=== PATIENT | female | born 1955 | race Caucasian/White ===

== ENCOUNTER 2023-09-07 15:18 | Emergency (ER) | payer MEDICARE ==
[2023-09-07 16:01] VITALS: TEMP 98.4
[2023-09-07] MEDS ORDERED: LIDOCAINE 1% INJ 10MG/ML (20 ML MDV) SQ ONE (16:40)
--- NOTE | 2023-09-07 17:35 | ED ---
Upper Extremity HPI - General Chief Complaint: Wound/Laceration Stated Complaint: knife cut to palm Time Seen by Provider: 09/07/23 16:23 Source: patient, RN notes reviewed Mode of arrival: ambulatory Limitations: no limitations - History of Present Illness Initial Comments: This is a 68-year-old female who presents to the emergency department for an inj ury to the left hand. States that she was cutting meat, when the knife slipped and she cut herself in the left palm. Tetanus vaccine is up-to-date. She initially called EMS who bandaged the patient, however she refused transport by them and opted to have a friend bring her to the emergency department instead. MD Complaint: Injury to:: left, hand - Related Data Allergies Allergy/AdvReac Type Severity Reaction Status Date / Time oxytetracycline Allergy Unknown Verified 09/07/23 15:59 [From Terramycin] Review of Systems ROS Statement: Those systems with pertinent positive or pertinent negative responses have been documented in the HPI. ROS Other: All systems not noted in ROS Statement are negative. Past Medical History Past Medical History: Asthma, Diabetes Mellitus, Hyperlipidemia, Hypertension, Thyroid Disorder History of Any Multi-Drug Resistant Organisms: None Reported Past Surgical History: Appendectomy, Hysterectomy, Orthopedic Surgery Additional Past Surgical History / Comment(s): arm surgery Past Psychological History: No Psychological Hx Reported Smoking Status: Former smoker Past Alcohol Use History: None Reported Past Drug Use History: None Reported General Exam Limitations: no limitations General appearance: alert, in no apparent distress Head exam: Present: atraumatic, normocephalic, normal inspection Respiratory exam: Present: normal lung sounds bilaterally. Absent: respiratory distress, wheezes, rales, rhonchi, stridor Cardiovascular Exam: Present: regular rate, normal rhythm, normal heart sounds. Absent: systolic murmur, diastolic murmur, rubs, gallop, clicks Neurological exam: Present: alert, oriented X3, CN II-XII intact Psychiatric exam: Present: normal affect, normal mood Skin exam: Present: other (3cm laceration to the left palm with visible subcutaneous tissue and active bleeding) Course Vital Signs 09/07/23 09/07/23 15:54 17:42 Temperature 98.4 F Pulse Rate 69 Pulse Rate [ 65 Right Pulse Oximetery] Respiratory 16 18 Rate Blood Pressure 151/83 Blood Pressure 121/71 [Right Arm] O2 Sat by Pulse 98 98 Oximetry Procedures - Laceration Laceration #1 Consent Obtained: verbal consent Indication: laceration Site: hand Size (cm): 3 Description: linear Depth: simple, single layer Anesthetic Used: lidocaine 1% Anesthesia Technique: local infiltration Amount (mls): 4 Pre-repair: wound explored, irrigated extensively Type of Sutures: nylon Size of Sutures: 5-0 Number of Sutures: 4 Technique: simple, interrupted Medical Decision Making - Medical Decision Making This is a 68-year-old female who presents to the emergency department for a laceration to the left hand. Was pt. sent in by a medical professional or institution? @ -No Did you speak to anyone other than the patient for history? @ -No Did you review nursing and triage notes? @ -Yes, and I agree, it is accurate with regards to the patient's symptoms. Were old charts reviewed? @ -No Differential Diagnosis? @ -Not applicable EKG interpreted by me (3pts min.)? @ -Not obtained X-rays interpreted by me (1pt min.)? @ -Not obtained CT interpreted by me (1pt min.)? @ -Not obtained U/S interpreted by me (1pt. min.)? @ -Not obtained What testing was considered but not performed? (CT, X-rays, U/S, labs)? Why? @ -None What meds were considered but not given? Why? @ -None Did you discuss the management of the patient with other professionals? @ -No Did you reconcile home meds? @ -No Was smoking cessation discussed for >3mins.? @ -No Was critical care preformed (if so, how long)? @ -No Were there social determinants of health that impacted care today? How? (Homelessness, low income, unemployed, alcoholism, drug addiction, transportation, low edu. Level, literacy, decrease access to med. care, halfway, rehab)? @ -No Was there de-escalation of care discussed even if they declined? (Discuss DNR or withdrawal of care, Hospice)? @ -No What co-morbidities impacted this encounter? (DM, HTN, Smoking, COPD, CAD, Cancer, CVA, Hep., AIDS, mental health diagnosis, sleep apnea, morbid obesity)? @ -None Was patient admitted / discharged? @ -Discharged. Her hand was soaked in sterile water and thoroughly cleansed. Laceration was repaired with sutures. Tetanus vaccine is already up to date. Advised Ibuprofen and Tylenol as needed for pain relief and she is instructed to return in 7-10 days for suture removal. Undiagnosed new problem with uncertain prognosis? @ -None Drug Therapy requiring intensive monitoring for toxicity (Heparin, Nitro, Insulin, Cardizem)? @ -None Were any procedures done? @ -Laceration repair with sutures Diagnosis/symptom? @ -Laceration Acute, or Chronic, or Acute on Chronic? @ -Acute Uncomplicated (without systemic symptoms) or Complicated (systemic symptoms)? @ -Uncomplicated Side effects of treatment? @ -None Exacerbation, Progression, or Severe Exacerbation] @ -Not applicable Poses a threat to life or bodily function? @ -No Return precautions reviewed in depth, the patient is instructed to return to the emergency department with any new, worsening, or concerning symptoms. Patient verbalized understanding. This case was discussed in detail with the attending ED physician, Dr. Trujillo. Presentation, findings, and treatment plan discussed in detail as well. Disposition Clinical Impression: Laceration Disposition: HOME SELF-CARE Instructions (If sedation given, give patient instructions): Care For Your Stitches (ED) Additional Instructions: Return to the emergency department with any new, worsening, or concerning symptoms and in 7-10 days for removal of the stitches. Alternate with Ibuprofen and Tylenol as needed for pain relief. Follow up with your primary care provider in 1-2 days. Is patient prescribed a controlled substance at d/c from ED?: No Referrals: Tray Whitaker MD [Primary Care Provider] - 1-2 days
[2023-09-07 17:55] VITALS: BP 121/71; PULSE 65; RESP 18
== END 2023-09-07 17:52 | disposition home or self-care (01) ==
LOC: EC 15:18
DX: S61.412A Laceration without foreign body of left hand, initial encounter (principal); E11.9 Type 2 diabetes mellitus without complications; J45.909 Unspecified asthma, uncomplicated; I10 Essential (primary) hypertension; Z87.891 Personal history of nicotine dependence; Z88.8 Allergy status to other drugs, medicaments and biological substances; W26.0XXA Contact with knife, initial encounter
CPT/HCPCS: 99282; 12002; J2001

== ENCOUNTER → 2023-10-02 | Outpatient (CLI) | payer MEDICARE ==
--- NOTE | 2023-10-02 09:40 | US ---
EXAMINATION TYPE: US kidneys/renal and bladder DATE OF EXAM: 10/02/2023 COMPARISON: NONE CLINICAL INDICATION: Female, 68 years old with history of N18.32 CHRONIC KIDNEY DISEASE, STAGE 3B; CK D 3B EXAM MEASUREMENTS: Right Kidney: 12.0x4.3x4.2 cm Left Kidney: 10.2x5.4x4.0 cm Right Kidney: mid/lateral cyst: 1.4x1.3x1.3cm Left Kidney: No hydronephrosis or masses seen Bladder: obscured by overlying bowel and body habitus There is no evidence for hydronephrosis at this point in time. No nephrolithiasis is seen. No sharon s are identified exam limited by overlying bowel and body habitus IMPRESSION: Simple cyst right kidney. Otherwise unremarkable study.
== END | disposition home or self-care (01) ==
LOC: RADUSWWP 08:09
PROVIDERS: ATTEND Family Medicine
DX: N18.32 Chronic kidney disease, stage 3b (principal)
CPT/HCPCS: 76770

== ENCOUNTER → 2023-10-20 | Outpatient (CLI) | payer MEDICARE | LOC: CPPFTMAIN 09:43 | PROVIDERS: ATTEND Family Medicine | DX: J44.9 Chronic obstructive pulmonary disease, unspecified (principal); Z88.1 Allergy status to other antibiotic agents | CPT/HCPCS: 94060; 94726; 94729 ==

== ENCOUNTER → 2024-04-04 | Outpatient (CLI) | payer MEDICARE ==
[2024-04-04 17:47] LABS: Creatinine,Urine Random 27.6 mg/dL; Protein/Creatinine Ratio,Urine 0.29
== END | disposition home or self-care (01) ==
LOC: LABWHC1 07:06
PROVIDERS: ATTEND Internal Medicine
DX: N18.30 Chronic kidney disease, stage 3 unspecified (principal); N39.0 Urinary tract infection, site not specified; N25.81 Secondary hyperparathyroidism of renal origin; R80.9 Proteinuria, unspecified
CPT/HCPCS: 36415; 80069; 82043; 82570; 83970; 84156

== ENCOUNTER → 2024-08-08 | Outpatient (CLI) | payer MEDICARE ==
[2024-08-08 15:03] LABS: Albumin 4.4 g/dL (3.8-4.9); BUN/Creat Ratio 21.05 Ratio (12.00-20.00); Calcium 10.2 mg/dL (8.7-10.3); Carbon Dioxide 21.8 mmol/L (21.6-31.8); Chloride 104 mmol/L (96-109); Glucose 132 mg/dL (70-110); Phosphorus 3.6 mg/dL (2.4-5.1); Potassium 4.5 mmol/L (3.5-5.5); Sodium 139 mmol/L (135-145)
[2024-08-08 15:16] LABS: Appearance,Urine Cloudy (Clear); Bilirubin,Urine Negative (Negative); Blood,Urine Negative (Negative); Color,Urine Yellow (Yellow); Ketones,Urine Negative (Negative); Nitrite,Urine Negative (Negative); Specific Gravity,Urine 1.015 (1.001-1.030)
[2024-08-08 15:51] LABS: Bacteria,Urine 3+ (None Seen)
== END | disposition home or self-care (01) ==
LOC: LABWHC1 09:13
PROVIDERS: ATTEND Internal Medicine
DX: N18.30 Chronic kidney disease, stage 3 unspecified (principal); N39.0 Urinary tract infection, site not specified; R80.9 Proteinuria, unspecified
CPT/HCPCS: 36415; 80069; 81001; 82043; 82570

== ENCOUNTER 2024-09-24 10:34 | Emergency (ER) | payer MEDICARE ==
[2024-09-24 10:41] VITALS: PULSE 78; RESP 20
--- NOTE | 2024-09-24 11:31 | XR ---
Left ankle HISTORY: Pain. COMPARISON: None. TECHNIQUE: 3 views of the left ankle were obtained. FINDINGS: There is moderate soft tissue swelling. Ankle mortise is intact. There is a ossicle adjacent to the distal medial malleolus which likely represents a remote evulsion injury as the margins are corticated. There is a small plantar calcaneal spur. There are no acute fractures or dislocations. IMPRESSION: 1. Moderate soft tissue swelling. 2.No acute fracture or dislocation. 3. remote avulsion injury of the medial malleolus. [facility], Workstation: [facility], 09/24/2024 11:29 AM
--- NOTE | 2024-09-24 11:33 | XR ---
Left foot. HISTORY: Pain following trauma. COMPARISON: None TECHNIQUE: 3 views of the left foot were obtained. FINDINGS: There is no fracture, dislocation, intraosseous or intra-articular abnormality. IMPRESSION: No evidence of acute trauma. [facility], Workstation: [facility], 09/24/2024 11:31 AM
--- NOTE | 2024-09-24 11:47 | ED ---
Lower Extremity Injury HPI - General Chief Complaint: Extremity Injury, Lower Stated Complaint: ankle pain Time Seen by Provider: 09/24/24 11:46 Source: patient, RN notes reviewed Mode of arrival: wheelchair Limitations: no limitations - History of Present Illness Initial Comments: 69-year-old female presented to the ER for evaluation of left foot pain. P atient states on Thursday she was attempting to put on a shoe. She states she was rotating her ankle [id number] to get her shoe on since then she has noticed pain and swelling to her left foot and ankle. She states her shoes have been compressing the swelling. She reports she has been favoring her left foot due to this discomfort. She was reporting most of her discomfort along the left second and third MTP joint. She has tried conservative measures without relief. She denies any calf tenderness/swelling. Patient has not tried anything for discomfort at this time. - Related Data Allergies Allergy/AdvReac Type Severity Reaction Status Date / Time oxytetracycline Allergy Unknown Verified 09/24/24 10:37 [From Terramycin] Review of Systems ROS Statement: Those systems with pertinent positive or pertinent negative responses have been documented in the HPI. ROS Other: All systems not noted in ROS Statement are negative. Past Medical History Past Medical History: Asthma, Diabetes Mellitus, Hyperlipidemia, Hypertension, Thyroid Disorder History of Any Multi-Drug Resistant Organisms: None Reported Past Surgical History: Appendectomy, Hysterectomy, Orthopedic Surgery Additional Past Surgical History / Comment(s): arm surgery Past Psychological History: No Psychological Hx Reported Smoking Status: Former smoker Past Alcohol Use History: None Reported Past Drug Use History: None Reported General Exam Limitations: no limitations General appearance: alert, in no apparent distress Respiratory exam: Present: normal lung sounds bilaterally. Absent: respiratory distress, wheezes, rales, rhonchi, stridor Cardiovascular Exam: Present: regular rate, normal rhythm, normal heart sounds. Absent: systolic murmur, diastolic murmur, rubs, gallop, clicks Extremities exam: Present: full ROM, tenderness (Left second and third MTP joint and forefoot. There is minimal redness overlying second and third MTP joint.), normal capillary refill (2+ left DP and PT pulse) Neurological exam: Present: alert, oriented X3, CN II-XII intact Skin exam: Present: warm, dry, intact, normal color. Absent: rash Course Vital Signs 09/24/24 09/24/24 10:38 11:58 Temperature 98.3 F 98.1 F Pulse Rate 78 78 Respiratory 20 20 Rate Blood Pressure 143/76 137/79 O2 Sat by Pulse 97 98 Oximetry Medical Decision Making - Medical Decision Making Was pt. sent in by a medical professional or institution ([facility] De [facility]zman, [employer] REFINISHER, urgent care, hospital, or jail...) When possible be specific @ -No Did you speak to anyone other than the patient for history (EMS, parent, family, police, friend...)? What history was obtained from this source @ -No Did you review nursing and triage notes (agree or disagree)? Why? @ -I reviewed and agree with nursing and triage notes Were old charts reviewed (outside hosp., previous admission, EMS record, old EKG, old radiological studies, urgent care reports/EKG's, jail records)? Report findings @ -No old charts were reviewed Differential Diagnosis (chest pain, altered mental status, abdominal pain women, abdominal pain men, vaginal bleeding, weakness, fever, dyspnea, syncope, headache, dizziness, GI bleed, back pain, seizure, CVA, palpatations, mental health, musculoskeletal)? @ -Differential Musculoskeletal: Muscular strain, contusion, ligament sprain, fracture, arthritis, septic arthritis, bursitis, cellulitis, muscle spasm, nerve compression, DVT, arterial occlusion, herpes zoster, electrolyte abnormality, tumor.... This is not meant to be in all inclusive list EKG interpreted by me (3pts min.). @ -None done X-rays interpreted by me (1pt min.). @ -Left foot x-ray interpreted by me negative for acute fractures. Left ankle x-ray negative for acute fractures. CT interpreted by me (1pt min.). @ -None done U/S interpreted by me (1pt. min.). @ -None done What testing was considered but not performed or refused? (CT, X-rays, U/S, labs)? Why? @ -None What meds were considered but not given or refused? Why? @ -Patient refused analgesic medications. Did you discuss the management of the patient with other professionals (professionals i.e. [facility] De Guzman, CAR REFINISHER, lab, RT, psych nurse, social media marketing specialist, court officer, teacher, chief scientific officer, rehabilitation case coordinator)? Give summary @ -No Was smoking cessation discussed for >3mins.? @ -No Was critical care preformed (if so, how long)? @ -No Were there social determinants of health that impacted care today? How? (Homelessness, low income, unemployed, alcoholism, drug addiction, transportation, low edu. Level, literacy, decrease access to med. care, [facility], rehab)? @ -No Was there de-escalation of care discussed even if they declined (Discuss DNR or withdrawal of care, Hospice)? DNR status @ -No What co-morbidities impacted this encounter? (DM, HTN, Smoking, COPD, CAD, Cancer, CVA, ARF, Chemo, Hep., AIDS, mental health diagnosis, sleep apnea, morbid obesity)? @ -None Was patient admitted / discharged? Hospital course, mention meds given and ro david, prescriptions, significant lab abnormalities, going to OR and other pertinent info. @ -Discharge. 69-year-old female presented to the ER for evaluation of left foot pain. Upon rooming, history and physical exam completed. Vitals within acceptable limits. Patient is neurovascularly intact. There is tenderness over forefoot and left second MTP joints. Minimal overlying erythema. X-rays obtained negative for acute process. Patient will be placed in an Mario wrap for support and instructed to follow-up with PCP for reevaluation. Patient refused analgesic medications. Strict return parameters discussed. Patient discharged in stable condition with follow-up to PCP. Patient verbally expressed understanding and agreement with care plan. Case discussed with ED attending, Candelaria Velasquez. Undiagnosed new problem with uncertain prognosis? @ -No Drug Therapy requiring intensive monitoring for toxicity (Heparin, Nitro, Insulin, Cardizem)? @ -No Were any procedures done? @ -No Diagnosis/symptom? @ -Foot pain Acute, or Chronic, or Acute on Chronic? @ -Acute Uncomplicated (without systemic symptoms) or Complicated (systemic symptoms)? @ -Uncomplicated Side effects of treatment? @ -No Exacerbation, Progression, or Severe Exacerbation? @ -No Poses a threat to life or bodily function? How? (Chest pain, [place], [place], pneumonia, PE, COPD, DKA, ARF, appy, cholecystitis, CVA, Diverticulitis, Homicidal, Suicidal, threat to staff... and all critical care pts) @ -No - Radiology Data Radiology results: report reviewed, image reviewed Disposition Clinical Impression: Foot pain Disposition: HOME SELF-CARE Condition: Stable Instructions (If sedation given, give patient instructions): Foot Sprain (ED) Additional Instructions: Recommend [id number] ibuprofen and Tylenol for pain control. Continue to rest ice and elevate. Follow-up with PCP. Return to the ER for any new or worsening concerns. Is patient prescribed a controlled substance at d/c from ED?: No Referrals: Tray Whitaker MD [Primary Care Provider] - 1-2 days Time of Disposition: 11:53
[2024-09-24 12:01] VITALS: BP 137/79; TEMP 98.1
== END 2024-09-24 11:58 | disposition home or self-care (01) ==
LOC: EC 10:34
DX: M79.672 Pain in left foot (principal); Z87.891 Personal history of nicotine dependence; Z88.8 Allergy status to other drugs, medicaments and biological substances
CPT/HCPCS: 99283

== ENCOUNTER → 2025-02-24 | Outpatient (CLI) | payer MEDICARE ==
[2025-02-24 15:55] LABS: BUN/Creat Ratio 23.89 Ratio (12.00-20.00); Blood Urea Nitrogen 45.4 mg/dL (9.0-27.0); Calcium 9.2 mg/dL (8.7-10.3); Carbon Dioxide 20.6 mmol/L (21.6-31.8); Chloride 110 mmol/L (96-109); Chol/HDL Ratio 7.53 Ratio; Glucose 104 mg/dL (70-110); LDL Cholesterol,Calculated 209.9 mg/dL (0.0-131.0); Sodium 142 mmol/L (135-145)
[2025-02-24 16:54] LABS: Cardiolipin IgA Antibody <2.0 U/mL
== END | disposition home or self-care (01) ==
LOC: LABWHC1 08:12
PROVIDERS: ATTEND Family Medicine
DX: E11.9 Type 2 diabetes mellitus without complications (principal); E03.9 Hypothyroidism, unspecified; E78.5 Hyperlipidemia, unspecified
CPT/HCPCS: 36415; 80048; 80061; 83036; 83695; 84443; 86147